=== PATIENT | male | born 1975 | race Caucasian/White ===

== ENCOUNTER 2017-12-08 18:44 | Emergency (ER) | payer OTHER ==
[~2017-12-08] VITALS: Ht 182.9 cm; Wt 127.8 kg
[2017-12-08] MEDS ORDERED: TOBREX5 ML LEFT EYE (21:12)
[2017-12-08] MEDS ORDERED: PERCOCET 5/31 TABLET PO (21:12)
[2017-12-08 21:49] VITALS: BP 135/82
== END 2017-12-08 21:53 | disposition home or self-care (01) ==
LOC: EME 18:44
DX: S05.02XA Injury of conjunctiva and corneal abrasion without foreign body, left eye, initial encounter (principal); H16.002 Unspecified corneal ulcer, left eye; W22.8XXA Striking against or struck by other objects, initial encounter; W31.1XXA Contact with metalworking machines, initial encounter; F17.200 Nicotine dependence, unspecified, uncomplicated
CPT/HCPCS: 99281; 99284